=== PATIENT | female | born 1990 | race African-American/Black ===

== ENCOUNTER 2018-12-18 17:08 | Emergency (ER) | payer SELFPAY ==
[2018-12-18] MEDS ORDERED: Dexamethasone 10 MG/ML VIAL ONE (18:21)
--- NOTE | 2018-12-18 19:38 | RAD ---
FRONTAL VIEW CHEST: Date: 12/18/18 No prior comparison. INDICATION: Cough. FINDINGS: There is no consolidation, effusion, or pneumothorax. Cardiac silhouette is normal in size. IMPRESSION: No focal consolidation. POS: [id number]
== END 2018-12-18 18:43 | disposition home or self-care (01) ==
LOC: ERS 17:08
DX: J45.901 Unspecified asthma with (acute) exacerbation (principal)
CPT/HCPCS: 71045; 96372; J1100

== ENCOUNTER 2019-01-14 07:26 | Emergency (ER) | payer SELFPAY ==
[2019-01-14] MEDS ORDERED: Dexamethasone 10 MG/ML VIAL ONE (08:13)
== END 2019-01-14 08:32 | disposition home or self-care (01) ==
LOC: ERS 07:26
DX: J45.901 Unspecified asthma with (acute) exacerbation (principal); Z79.51 Long term (current) use of inhaled steroids
CPT/HCPCS: 99284; J1100

== ENCOUNTER 2019-03-22 22:28 | Emergency (ER) | payer BC, SELFPAY ==
[2019-03-22] MEDS ORDERED: Dexamethasone 10 MG/ML VIAL ONE (23:03)
[2019-03-22] MEDS ORDERED: diphenhydrAMINE 12.5 MG/5 ML UDCUP ONE (23:03)
[2019-03-22] MEDS ORDERED: Famotidine/PF 20 mg/2ml Vial ONE (23:04)
[2019-03-22] MEDS ORDERED: Famotidine 20 MG TAB ONE (23:05)
== END 2019-03-23 00:21 | disposition home or self-care (01) ==
LOC: ERS 22:28
DX: T78.40XA Allergy, unspecified, initial encounter (principal); J45.909 Unspecified asthma, uncomplicated
CPT/HCPCS: 99283; J1100; Q0163; S0028

== ENCOUNTER 2019-03-25 10:54 | Emergency (ER) | payer BC, MEDICAID | END 2019-03-25 11:29 | disposition home or self-care (01) | LOC: SCSER 10:54 | DX: J02.9 Acute pharyngitis, unspecified (principal); H10.9 Unspecified conjunctivitis | CPT/HCPCS: 87081; 87430; 99283 ==